=== PATIENT | female | born 1945 | race Caucasian/White ===

== ENCOUNTER → 2018-10-21 | Outpatient (CLI) | payer BC, MEDICARE ==
--- NOTE | 2018-10-22 09:59 | REP ---
LEFT HIP, TWO VIEWS: Two views of the left hip performed. 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 No abnormal lucency is seen adjacent to the acetabular or femoral prosthetic components. The osseous structures are intact with no fracture. There is no dislocation. Note is also made of multiple metallic screws with fusion rods and disc spacers in the lower lumbar spine region. IMPRESSION: Status post left hip arthroplasty. No acute findings. No abnormal lucency adjacent to the prosthetic components at the interface with the adjacent femur and acetabulum. Electronically Signed by Eric Vega MD 10/22/2018 11:24 P
== END ==
LOC: M ADAMS 15:47
PROVIDERS: ATTEND Physician Assistant
DX: M25.552 Pain in left hip (principal); Z96.642 Presence of left artificial hip joint